=== PATIENT | male | born 2000 | race Caucasian/White ===

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

== ENCOUNTER 2020-02-17 19:45 | Emergency (ER) | payer MEDICAID, SELFPAY ==
[~2020-02-17] VITALS: Ht 172.7 cm; Wt 54.9 kg
[2020-02-17 20:18] VITALS: BP_SYST 118
--- NOTE | 2020-02-17 20:18 | NUR ---
Patient awake, alert, ambulatory, c/o bilat flank pain, constant dull pain, more on his rt side for days. Patient reported urinary frequency and has been taking Macrobid every 12 hours for diagnosis of UTI. Patient reported no relief of symptoms. Pt respiratory even unlabored, not in distress. Pt afebrile however experiencing chills. Denied N/V/D. Patient has not taken anything for his pain. Will continue to monitor.
--- NOTE | 2020-02-17 20:18 | NUR ---
Pt ambulatory to bed 2 for evaluation
--- NOTE | 2020-02-17 20:19 | NUR ---
Urine sample collected and sent to lab
--- NOTE | 2020-02-17 20:20 | NUR ---
ER at bedside examining patient.
--- NOTE | 2020-02-17 20:22 | NUR ---
Pt BIB family to ED C/O right flank pain with intermittent sharp left flank pain for 3 days. The right flank pain is rated 3/10 intensity. States he went to urgent care 3 days ago with urinary burning and back discomfort and had a negative urinalysis but was diagnosed with UTI. He reportedly took Macrobid twice a day with minimal improvement. Per patient, he has slight chills. Otherwise, denies nausea, vomiting, fever, hematuria, or any other complaints
[2020-02-17 20:26] LABS: BILIRUBIN,URINE NEGATIVE (NEGATIVE); BLOOD, URINE NEGATIVE (NEGATIVE); CLARITY/URINE CLEAR (CLEAR); COLOR,URINE YELLOW (YELLOW); GLUCOSE,URINE NEGATIVE (NEGATIVE); KETONES,URINE NEGATIVE (NEGATIVE); LEUKOCYTE ESTERASE ,URINE NEGATIVE (NEGATIVE); NITRITE, URINE NEGATIVE (NEGATIVE); PROTEIN URINE NEGATIVE (NEGATIVE); UROBILINOGEN,URINE 0.2 (0.2-1.0)
[2020-02-17 20:41] LABS: BASOPHILS # (AUTO) 0.1 K/uL (0.0-0.2); EOSINOPHILS # (AUTO) 0.1 K/uL (0.0-0.4); EOSINOPHILS % (AUTO) 1.3 % (0.0-4.0); HEMATOCRIT 43.7 % (36-54); HEMOGLOBIN 15.3 g/dL (14.0-18.0); LYMPHOCYTES # (AUTO) 2.5 K/uL (1.0-5.5); LYMPHOCYTES % (AUTO) 34.8 % (20.5-51.5); MEAN CORPUSCULAR HEMOGLOBIN 31 pg (27-31); MEAN CORPUSCULAR HGB CONC 35 % (32-36); MEAN CORPUSCULAR VOLUME 88 fL (79.0-98.0); MONOCYTES # (AUTO) 0.6 K/uL (0.0-1.0); MONOCYTES % (AUTO) 8.6 % (1.7-9.3); NEUTROPHILS # (AUTO) 3.8 K/uL (1.8-7.7); NEUTROPHILS % (AUTO) 54.3 % (40.0-70.0); PLATELET COUNT (AUTO) 316 K/uL (130-430); RED BLOOD CELL COUNT(AUTO) 4.99 MIL/uL (4.2-6.2); RED CELL DISTRIBUTION WIDTH 12.8 % (9.0-15.0); WHITE BLOOD COUNT (AUTO) 7.1 K/uL (4.5-11.0)
[2020-02-17 20:54] LABS: CALCIUM 9.6 mg/dL (8.4-11.0); CREATININE 0.88 mg/dL (0.55-1.30); POTASSIUM 4.9 mmol/L (3.5-5.1)
[2020-02-17 21:00] LABS: ALBUMIN 4.7 g/dL (3.4-4.8); TOTAL BILIRUBIN 1.5 mg/dL (0.0-1.0)
--- NOTE | 2020-02-17 21:00 | NUR ---
Pt back from Radiology in stable condition, and well tolerated
--- NOTE | 2020-02-17 21:55 | NUR ---
VSS no s/s of acute distress Resting on gurney rails up
--- NOTE | 2020-02-17 23:07 | NUR ---
Dr. Correa updating pt with pt's mother at bedside
[2020-02-17] MEDS ORDERED: NACL 0.9% 1,000 ML IV ONE (23:15)
--- NOTE | 2020-02-18 00:06 | NUR ---
Dr. Correa bedside to update pt once again
--- NOTE | 2020-02-18 01:09 | NUR ---
Gave Report to Elvia Chua, Arranged transport ETA 10 min
[2020-02-18 01:20] VITALS: BP_SYST 118
--- NOTE | 2020-02-18 01:20 | NUR ---
Patient to be transferred to [facility]. Is being transferred due to higher level of care. Receiving facility has accepting physician and available space. ER physician has signed transfer form. Patient or responsible republican has agreed to transfer and signed form. Patient belongings inventoried and will be sent with patient. Copy of nursing notes, lab reports, EKG, Physicians Orders and X-rays to be sent with patient. Report called to at receiving facility. Receiving physician is Dr. Carbajal. [facility] ambulance service is here at bedside
== END 2020-02-18 01:20 | disposition short-term general hospital (02) ==
LOC: SED 19:45
DX: K35.80 Unspecified acute appendicitis (principal); Z20.828 Contact with and (suspected) exposure to other viral communicable diseases
CPT/HCPCS: 36415; 80053; 81003; 85025; 99285

== ENCOUNTER 2021-02-08 17:07 | Emergency (ER) | payer MEDICAID, SELFPAY ==
[~2021-02-08] VITALS: Ht 172.7 cm; Wt 56.7 kg
[2021-02-08 17:15] VITALS: BP_SYST 120
--- NOTE | 2021-02-08 17:15 | NUR ---
Patient to ER bed 8 to gown for evaluation. Side rails up. Report given to DHARMESH Falk
--- NOTE | 2021-02-08 17:16 | NUR ---
patient present to ED reports open wound to left lower back. Patient reports having mole excision on Wednesday and 7 stitches were placed. Patient currently has 3 stitches left. pain 1/10. No redness or drainage noted.
--- NOTE | 2021-02-08 17:16 | NUR ---
Note [email or web address] in EDM - 02/08/21 at 1721 by [email or web address] patient present to ED reports open wound to right lower back. Patient reports having mole excision on Wednesday and 7 stitches were placed. Patient currently has 3 stitches left. pain 05/19. No redness or drainage noted.
--- NOTE | 2021-02-08 17:17 | NUR ---
ER Dr. Jones at bedside examining patient.
[2021-02-08 17:23] VITALS: BP_SYST 120
--- NOTE | 2021-02-08 17:23 | NUR ---
Patient given written and verbal discharge instructions and verbalizes understanding. ER MD discussed with patient the results and treatment provided. Patient in stable condition. ID arm band removed. No Rx. Patient educated on pain management and to follow up with PMD. Pain Scale 0/10 Opportunity for questions provided and answered.
== END 2021-02-08 17:23 | disposition home or self-care (01) ==
LOC: SED 17:07
DX: T81.30XA Disruption of wound, unspecified, initial encounter (principal)
CPT/HCPCS: 99281

== ENCOUNTER 2021-04-05 16:52 | Emergency (ER) | payer MEDICAID ==
[~2021-04-05] VITALS: Ht 172.7 cm; Wt 59.0 kg
--- NOTE | 2021-04-05 19:43 | NUR ---
ER in triage examining patient.
--- NOTE | 2021-04-05 20:00 | NUR ---
PATIENT AAOX4 AND AMBULATORY FROM HOME C/O 1 week of intermittent diffuse chest pain with a pleuritic component which typically lasts less than 2 minutes during flareups and is rated mild to moderate in severity. Patient had a history of COVID-19 1 month prior, and presents for concern over pericarditis. VSS. NO VISIBLE DISTRESS AT THIS TIME. DENIES ANY SOB.
[2021-04-05 20:25] VITALS: BP_SYST 124
--- NOTE | 2021-04-05 20:25 | NUR ---
Patient given written and verbal discharge instructions and verbalizes understanding. DR. MAURICE NORRIS MD discussed with patient the results and treatment provided. Patient in stable condition. ID arm band removed. Patient educated on pain management and to follow up with PMD. Pain Scale 0/10. Opportunity for questions provided and answered. Medication side effect fact sheet provided.
== END 2021-04-05 20:25 | disposition home or self-care (01) ==
LOC: SED 16:52
DX: R07.89 Other chest pain (principal); Z79.899 Other long term (current) drug therapy; Z87.891 Personal history of nicotine dependence
CPT/HCPCS: 71045; 93005; 99283

== ENCOUNTER 2021-12-28 18:54 | Emergency (ER) | payer MEDICAID ==
[~2021-12-28] VITALS: Ht 172.7 cm; Wt 55.8 kg
[2021-12-28 19:02] VITALS: BP_SYST 133
--- NOTE | 2021-12-28 19:15 | NUR ---
ASSUME CARE OF TJIS PATIENT HERE FOR LT HAND PAIN AND SWELLING. PT DENIES TRAUMA. PENDING MD ESQUEDA.
--- NOTE | 2021-12-28 19:18 | NUR ---
PT SEEN AND EXAMINE BY DR. BOLDEN
[2021-12-28] MEDS ORDERED: CEPH-548 PO (19:21)
--- NOTE | 2021-12-28 19:26 | NUR ---
DC PATIENT HOME AAOX4, NO SOB NOTED AND NOT IN ANY DISTRESS. DC INSTRUCTION AND PRESCRIPTION WERE HANDED BY DR. BOLDEN TO PATIENT. HE VERRBALIZED UNDERSTADNING.
== END 2021-12-28 19:29 | disposition home or self-care (01) ==
LOC: SED 18:54
DX: I82.611 Acute embolism and thrombosis of superficial veins of right upper extremity (principal); L03.012 Cellulitis of left finger; Z79.899 Other long term (current) drug therapy
CPT/HCPCS: 99283